=== PATIENT | female | born 1940 | race Caucasian/White ===

== ENCOUNTER 2023-06-29 11:13 | Emergency (ER) | payer OTHER, SELFPAY ==
[2023-06-29 11:14] VITALS: BP 150/81
[2023-06-29] MEDS: TYLENOL 650 MG PO (12:17)
--- NOTE | 2023-06-29 12:17 | ED.GENMED ---
History of Present Illness
General
Chief Complaint: Fall
Source: patient
Time Seen by Provider: 06/29/23 12:08
Travel History
Have you had any contact with someone who has COVID-19?: No
Do you have any symptoms of coronavirus? Fever > 100 degrees, chills, cough, shortness of breath, sore throat, loss of taste or smell, muscle aches, or headache?: No
History of Present Illness
History of Present Illness:
83-year-old female presenting to the emergency department for evaluation after she was walking outside in her yard and accidentally slipped down a small hill injuring her left hip knee and ankle stating it got caught underneath of her and slid
downwards. Patient was able to crawl back up the hill and towards her house and had a family member drive her to the ER for evaluation. Patient is on Eliquis for A-fib but states she did not hit her head or have any headaches, vomiting or any
other injuries. Patient does states she was able to ambulate following the fall but is uncomfortable while doing so. She does not use any assistive devices to help her ambulate at home. No other concerns at this time.
Past History
Past History
ED Past Medical History: Arrthythmia (Atrial fib), GERD, HTN, Hypercholesterolemia, Hypothyroidism and Other (Diverticulitis); Negative NIDDM
ED Past Surgical History: Cardiac (pacemaker), Gynecological (Hysterectomy) and Other (Hernia repair)
Patient has exhibited threatening behavior?: No
Social History
Tobacco: Non-smoker
Alcohol: None
Drug: None
Personal:
Living: alone
Family History
Family History: Other (Noncontributory)
Review of Systems
Review of Systems
All Other Systems: ROS reviewed and negative except as documented in HPI and ROS
Phy Exam
Physical Exam
Physical Exam:
GENERAL: Alert , in no apparent distress
EYE: conjunctiva clear
Head: Normocephalic atraumatic
NECK: Supple,
ENT: mmm.
LUNGS: no acute respiratory distress
NEUROLOGICAL: Alert and oriented
SKIN: Warm and dry, skin intact.
MUSCULOSKELETAL: well perfused. No obvious signs of trauma. Patient is able to range of motion her hip knee and ankle without difficulty. There is no focal areas of tenderness to palpation.
PSYCH: Normal and appropriate interaction.
Scores
Heart Failure Risk
Heart Failure Risk Score: Not Applicable
Heart Score for Chest Pain Patients
STEMI patient?: Not applicable
Withdrawal Assessment of Alcohol
Withdrawal Assessment Completed?: Not applicable
Course
Orders/Labs/Results
Orders:
Orders
06/29/23 11:19
CR Ankle - Left Min 3 Views Urgent
Comment:
Reason For Exam: pain after fall
CR Hip - LT w/wo Pel 2-3 Vw* Urgent
Comment:
Reason For Exam: pain after fall
Include a pelvis x-ray?: Yes
Knee, Left 4 or More Views [CR Knee - Left 4 Or More View*] Urgent
Comment:
Reason For Exam: pain after fall
06/29/23 12:08
CT Head W/o Iv Contrast Urgent
Comment:
Reason For Exam: fall, on eliquis
06/29/23 12:13
Acetaminophen [Tylenol] 650 mg PO NOW STA
PT Consult [Pt Eval And Treat] Urgent
Activity Level: Ambulate
Vital Signs
Initial and Last Documented VS:
Initial Vital Signs
Temp Pulse Resp BP Pulse Ox
99.6 F 72 20 150/81 97
06/29/23 11:14 06/29/23 11:14 06/29/23 11:14 06/29/23 11:14 06/29/23 11:14
Last Documented Vital Signs
Temp Pulse Resp BP Pulse Ox
99.6 F 72 20 150/81 97
06/29/23 11:14 06/29/23 11:14 06/29/23 11:14 06/29/23 11:14 06/29/23 11:14
MDM/Problems Addressed
Differential Diagnosis Includes:
Fracture, sprain, contusion, minimal concern for intracranial pathology however given patient is on Eliquis will still obtain a head CT
MDM/Problems Addressed:
83-year-old female present emergency department for evaluation of accidental slip and fall while at home, states main concern is the left lower extremity and x-rays of these were ordered from triage which do not show any evidence for fracture. I
added on a CT of the patient's head due to her anticoagulated status. I am ordering a physical therapy consult to help ensure patient's stability and offered patient a walker to help get her around over the next few days until pain subsides.
Patient is agreeable with this plan
*Radiology
Radiology exam reviewed: preliminary read by ED provider (No acute fracture of the knee hip or ankle)
*Pulse Oximetry
Patient hypoxic: no
*Critical Care Note
Total Time (30-74mins, 75-104mins- exclusive of procedures): Not Applicable
Patient Management
Escalation/DeEscalation of care consider admission/obs:
Patient's head CT negative for any acute pathologies. She was able to ambulate steadily with a walker with physical therapy. Patient feels comfortable taking a walker at home. She is otherwise stable for discharge and aware of return precautions.
ED Attending Note
-
Portions of this chart may have been created with voice recognition software.� Occasional wrong word or��sound alike� substitutions may have occurred due to the inherent limitations of voice recognition software.
Discharge Plan
Departure
Patient Disposition: Home (Routine Discharge)
Date of Disposition: 06/29/23
Time of Disposition: 13:24
Patient with high blood pressure during this ER visit?: Yes
Discharge Problem:
Left leg pain, Accidental fall
Instructions: Preventing falls in adults
Prescriptions:
No Action
enalapril maleate 5 MG tablet
5 mg PO DAILY
levothyroxine [Synthroid] 50 MCG tablet
50 mcg PO DAILY
diltiazem HCl [Cartia XT] 120 MG capsule,extended release 24hr
240 mg PO BID
omeprazole 20 MG capsule,delayed release(DR/EC)
40 mg PO DAILY
furosemide [Lasix] 20 MG tablet
20 mg PO DAILYPRN PRN (Reason: leg swelling)
metoprolol tartrate 25 MG tablet
25 mg PO BID
atorvastatin 20 MG tablet
20 mg PO QPM
hydrocodone-acetaminophen 1 EACH tablet
1 ea PO BID
digoxin 0.125 MG tablet
0.125 mg PO QPM
polyethylene glycol 3350 [Miralax] 119 GM powder
119 gm PO DAILY PRN (Reason: Constipation)
Patient Comments:
'im not exactly sure of the dose.'
famotidine [Pepcid] 20 mg Tablet
20 mg PO HS
zolpidem [Ambien] 5 mg Tablet
5 mg PO HS PRN (Reason: insomnia)
fluticasone propionate 50 mcg/actuation [place],Suspension
1 spray INTRANASAL BID
Eliquis 2.5 mg Tablet
2.5 mg PO BID
Referrals:
Jignesh Cantu MD [Family Provider] -
Interventions
Interventions:
*Risk Screen - Suicide Last Done: 06/29/23 11:47
*General Assessment Last Done: 06/29/23 11:47
*Neglect/Abuse Screening Last Done: 06/29/23 11:47
ED- Fall Risk Assessment Last Done: 06/29/23 11:47
*ED COVID-19 Vaccine History Last Done: 06/29/23 11:14
*Nursing Disposition Last Done: 06/29/23 13:34
ED-Musculoskeletal Assessment Last Done: 06/29/23 11:47
ED- Neurological Assessment Last Done: 06/29/23 11:47
ED-Skin Assessment Last Done: 06/29/23 11:47
== END 2023-06-29 13:35 | disposition home or self-care (01) ==
LOC: EMR 11:13
PROVIDERS: EMERGENCY PHYSICIAN Emergency Medicine; FAMILY PHYSICIAN Internal Medicine
DX: M79.605 Pain in left leg (principal); W17.81XA Fall down embankment (hill), initial encounter; Z79.01 Long term (current) use of anticoagulants; I10 Essential (primary) hypertension
CPT/HCPCS: 99284; 70450; 73502; 73564; 73610

== ENCOUNTER 2023-09-12 18:26 | Emergency (ER) | payer OTHER, SELFPAY ==
[2023-09-12 18:36] VITALS: BP 140/102; BMI 19.2
--- NOTE | 2023-09-12 19:48 | ED.GENMED ---
History of Present Illness
General
Chief Complaint: Prescription Refill
Source: patient
Time Seen by Provider: 09/12/23 19:15
Travel History
Have you had any contact with someone who has COVID-19?: No
Do you have any symptoms of coronavirus? Fever > 100 degrees, chills, cough, shortness of breath, sore throat, loss of taste or smell, muscle aches, or headache?: No
History of Present Illness
History of Present Illness:
83-year-old female with past medical history of atrial fibrillation, CHF, previous pacemaker placement, chronic pain presenting to the emergency department for evaluation stating she has not had her pain medication (hydrocodone 10 mg every 4 hours)
since Tuesday. Patient saw her pain management physician this past and was given a new prescription but is unable to get this filled until based off of her last per [employer] filled 1 month ago. Patient does admit to taking more of the
hydrocodone daily than she was supposed to which is why she ran out of the medication. She states that throughout the weekend she started to experience increased spasms, nausea and generally feeling unwell. This evening symptoms got worse
prompting her to come to the emergency department. Patient notes that she is currently wearing a buprenorphine patch which she states is part of the plan to taper her off of the amount of hydrocodone she needs but notes that she still was supposed
to get hydrocodone as part of her pain management plan. I asked patient about the chest pain that was reported in triage and patient states she is not having any chest pain at all and she is only having her usual pain and spasms that she noted
earlier.
Past History
Past History
ED Past Medical History: Arrthythmia (Atrial fib), GERD, HTN, Hypercholesterolemia, Hypothyroidism and Other (Diverticulitis); Negative NIDDM
ED Past Surgical History: Cardiac (pacemaker), Gynecological (Hysterectomy) and Other (Hernia repair)
Patient has exhibited threatening behavior?: No
Social History
Tobacco: Non-smoker
Alcohol: None
Drug: None
Personal:
Living: alone
Family History
Family History: Other (Noncontributory)
Review of Systems
Review of Systems
All Other Systems: ROS reviewed and negative except as documented in HPI and ROS
Phy Exam
Physical Exam
Physical Exam:
GENERAL: Alert , appears upset, intermittent spasms/twitching noted
EYE: conjunctiva clear
NECK: Supple
ENT: o/p clr, mmm.
CARDIAC: Regular rate and rhythm
LUNGS: Clear breath sounds bilaterally, no acute respiratory distress, no wheezes/rales/rhonchi
NEUROLOGICAL: Alert and oriented
SKIN: Warm and dry, skin intact.
MUSCULOSKELETAL: well perfused.
PSYCH: Normal and appropriate interaction.
Scores
Heart Failure Risk
Heart Failure Risk Score: Not Applicable
Heart Score for Chest Pain Patients
STEMI patient?: Not applicable
Withdrawal Assessment of Alcohol
Withdrawal Assessment Completed?: Not applicable
Course
Orders/Labs/Results
Orders:
Orders
09/12/23 18:28
EKG [Electrocardiogram (*1)] Urgent
Reason for Study: Chest Pain
EKG- Treatment ONCE
09/12/23 19:47
Hydrocodone 5/APAP 325 [[place] 5/325] 2 tablet PO NOW STA
Ondansetron Orally Disint [Zofran Odt (Orally Disintegrating)] 4 mg PO NOW STA
09/12/23 18:28
09/12/23 18:28
Vital Signs
Initial and Last Documented VS:
Initial Vital Signs
Temp Pulse Resp BP Pulse Ox
97.6 F 62 16 140/102 99
09/12/23 18:36 09/12/23 18:36 09/12/23 18:36 09/12/23 18:36 09/12/23 18:36
Last Documented Vital Signs
Temp Pulse Resp BP Pulse Ox
97.6 F 62 16 140/102 99
09/12/23 18:36 09/12/23 18:36 09/12/23 18:36 09/12/23 18:36 09/12/23 18:36
MDM/Problems Addressed
Differential Diagnosis Includes:
Opiate/medication withdrawal, I do not have concern for ACS, no concern for infectious etiology
MDM/Problems Addressed:
83-year-old female presenting emergency department for evaluation of her chronic pain related to running out of her usual hydrocodone medication. Patient is clearly experiencing opiate withdrawal as she is on high doses of hydrocodone daily and has
been without this medication for 3 days. I explained to the patient that part of this emergency department policy is we are unable to refill chronic pain medications and are limited in how we are able to treat opioid addiction. Given that the
patients pain management provider is actively trying to taper her off of these medications explained we would give 1 dose of her hydrocodone here, Zofran for nausea and that she would need to contact her pain management team in the morning. Patient
already took 50 mg of Benadryl prior to coming to the emergency department and she is unable to take NSAIDs due to being on Eliquis. Patient is otherwise stable for discharge home
Chronic conditions affecting care: Other (Chronic pain)
Acute Exacerbation and/or Progression of Chronic Illness: Other (Chronic pain)
*Pulse Oximetry
Patient hypoxic: no
*Critical Care Note
Total Time (30-74mins, 75-104mins- exclusive of procedures): Not Applicable
ED Attending Note
-
Portions of this chart may have been created with voice recognition software.� Occasional wrong word or��sound alike� substitutions may have occurred due to the inherent limitations of voice recognition software.
Discharge Plan
Departure
Patient Disposition: Home (Routine Discharge)
Date of Disposition: 09/12/23
Time of Disposition: 19:48
Patient with high blood pressure during this ER visit?: Yes
Discharge Problem:
Opioid withdrawal
Instructions: Prescription Drug Withdrawal (DC)
Prescriptions:
No Action
enalapril maleate 5 MG tablet
5 mg PO DAILY
levothyroxine [Synthroid] 50 MCG tablet
50 mcg PO DAILY
diltiazem HCl [Cartia XT] 120 MG capsule,extended release 24hr
240 mg PO BID
omeprazole 20 MG capsule,delayed release(DR/EC)
40 mg PO DAILY
furosemide [Lasix] 20 MG tablet
20 mg PO DAILYPRN PRN (Reason: leg swelling)
metoprolol tartrate 25 MG tablet
25 mg PO BID
atorvastatin 20 MG tablet
20 mg PO QPM
hydrocodone-acetaminophen 1 EACH tablet
1 ea PO BID
digoxin 0.125 MG tablet
0.125 mg PO QPM
polyethylene glycol 3350 [Miralax] 119 GM powder
119 gm PO DAILY PRN (Reason: Constipation)
Patient Comments:
'im not exactly sure of the dose.'
famotidine [Pepcid] 20 mg Tablet
20 mg PO HS
zolpidem [Ambien] 5 mg Tablet
5 mg PO HS PRN (Reason: insomnia)
fluticasone propionate 50 mcg/actuation [place],Suspension
1 spray INTRANASAL BID
Eliquis 2.5 mg Tablet
2.5 mg PO BID
Referrals:
Jignesh Cantu MD [Family Provider] -
Interventions
Interventions:
*Risk Screen - Suicide Last Done: 09/12/23 18:36
*General Assessment Last Done: 09/12/23 20:06
*Neglect/Abuse Screening Last Done: 09/12/23 18:36
ED- Fall Risk Assessment Last Done: 09/12/23 20:06
*ED COVID-19 Vaccine History Last Done: 09/12/23 18:36
*Nursing Disposition Last Done: 09/12/23 20:06
Discharge Date and Time
Print Language: KHMER
[2023-09-12] MEDS: NORCO 5/325 2 TABLET PO (19:54)
[2023-09-12] MEDS: ZOFRAN ODT (ORALLY DISINTEGRATING) 4 MG PO (19:55)
== END 2023-09-12 20:07 | disposition home or self-care (01) ==
LOC: EMR 18:26
PROVIDERS: EMERGENCY PHYSICIAN Emergency Medicine; FAMILY PHYSICIAN Internal Medicine
DX: F11.23 Opioid dependence with withdrawal (principal); G89.29 Other chronic pain; I10 Essential (primary) hypertension; Z79.01 Long term (current) use of anticoagulants
CPT/HCPCS: 99283; 93005

== ENCOUNTER → 2024-03-28 14:36 | Outpatient (REF) | payer OTHER, SELFPAY | LOC: RCS 14:36 | PROVIDERS: ATTENDING PHYSICIAN Student in an Organized Health Care Education/Training Program; FAMILY PHYSICIAN Internal Medicine | DX: Z01.818 Encounter for other preprocedural examination (principal) | CPT/HCPCS: 93306 ==

== ENCOUNTER → 2024-10-25 09:56 | Outpatient (REF) | payer OTHER, SELFPAY | LOC: RCS 09:56 | PROVIDERS: ATTENDING PHYSICIAN Student in an Organized Health Care Education/Training Program; FAMILY PHYSICIAN Internal Medicine | DX: I34.0 Nonrheumatic mitral (valve) insufficiency (principal) | CPT/HCPCS: 93306 ==